=== PATIENT | female | born 1995 | race Caucasian/White ===

== ENCOUNTER 2019-06-21 17:40 | Emergency (ER) | payer BC, MEDICAID ==
[2019-06-21] MEDS ORDERED: CEFTRIAXONE INJ 250 MG VIAL IM ONE (18:18)
[2019-06-21] MEDS ORDERED: LIDOCAINE 1% INJ (10 MG/ML) 10 ML MDV INJ ONE (18:19)
[2019-06-21] MEDS ORDERED: DOXYCYCLINE HYCLATE 100 MG TABLET PO ONE (18:19)
--- NOTE | 2019-06-21 18:24 | ER Document Report ---
HPI - HPI Patient complains to provider of: mouth sores Time Seen by Provider: 06/21/19 18:05 Onset: Other - 2wks Onset/Duration: Better Quality of pain: Achy Pain Level: 4 Context: Patient complains of mouth sores that she has had over the past 2 weeks. Patient states that the lesions were worse and started to resolve but she has some tingling to the lower lip and feels like she may get additional skin lesions. Patient does report a history of oral herpes. Patient also states that she had been exposed to chlamydia and would like to be treated for this tonight. Associated Symptoms: denies: Nonproductive cough, Fever, Headache, Sore throat Exacerbated by: Denies Relieved by: Denies Similar symptoms previously: Yes Recently seen / treated by doctor: No - ROS ROS below otherwise negative: Yes Systems Reviewed and Negative: Yes All other systems reviewed and negative - CONSTITUTIONAL Constitutional: DENIES: Fever, Chills - EENT EENT: DENIES: Sore Throat, Ear Pain - NEURO Neurology: DENIES: Headache - RESPIRATORY Respiratory: DENIES: Coughing - GASTROINTESTINAL Gastrointestinal: DENIES: Nausea - URINARY Urinary: DENIES: Dysuria, Urgency, Frequency - REPRODUCTIVE Reproductive: DENIES: :, Abnormal bleeding / discharge - DERM Skin Color: Normal Skin Problems: Rash, Blister Past Medical History - General Information source: Patient - Social History Smoking Status: Current Every Day Smoker Smoking Education Provided: Yes Frequency of alcohol use: None Drug Abuse: None Occupation: cleaning Family History: Reviewed & Not Pertinent Patient has suicidal ideation: No Patient has homicidal ideation: No - Medical History Medical History: Negative Renal/ Medical History: Denies: Hx Peritoneal Dialysis Surgical Hx: Negative Vertical Provider Document - CONSTITUTIONAL Agree With Documented VS: Yes Exam Limitations: No Limitations General Appearance: WD/WN, No Apparent Distress - INFECTION CONTROL TRAVEL OUTSIDE OF THE [place] IN LAST 30 DAYS: No - HEENT HEENT: Atraumatic, Normal ENT Exam, Normocephalic. negative: Pharyngeal Exudate, Pharyngeal Tenderness, Pharyngeal Erythema, Tympanic Membrane Red, Tympanic Membrane Bulging Notes: Patient with few scattered discrete papular lesions along the vermilion border of right lower lip - NECK Neck: Normal Inspection, Supple. negative: Lymphadenopathy-Left, Lymphadenopathy-Right - RESPIRATORY Respiratory: Breath Sounds Normal, No Respiratory Distress - CARDIOVASCULAR Cardiovascular: Regular Rate, Regular Rhythm - BACK Back: Normal Inspection - MUSCULOSKELETAL/EXTREMETIES Musculoskeletal/Extremeties: MARYCARMEN, FROM - NEURO Level of Consciousness: Awake, Alert, Appropriate Motor/Sensory: No Motor Deficit - DERM Integumentary: Warm, Dry Course - Re-evaluation Re-evalutation: 06/21/19 18:21 pt reports history of oral herpetic lesions in the past and suspects the same today. Patient also reports having exposure to chlamydia and would like prophylactic treatment. Patient denies any concerns about - Vital Signs Vital signs: Temp Pulse Resp BP Pulse Ox 97.6 F 117 H 18 124/72 96 06/21/19 17:47 06/21/19 17:47 06/21/19 17:47 06/21/19 17:47 06/21/19 17:47 Discharge - Discharge Clinical Impression: Oral herpes simplex infection, Concern about STD in female without diagnosis Condition: Stable Disposition: HOME, SELF-CARE Instructions: Chlamydia ([facility]), Doxycycline ([facility]), Herpes Simplex ([facility]), Rocephin ([facility]) Additional Instructions: Return immediately for any new or worsening symptoms Followup with your primary care provider, call tomorrow to make a followup appointment Safe sex practices Prescriptions: Doxycycline Hyclate 100 mg PO BID #14 capsule Valacyclovir HCl [Valacyclovir] 1,000 mg PO TID #21 tablet Forms: Smoking Cessation Education, Return to Work Referrals: [facility] [Provider Group] - Follow up as needed [facility] [Provider Group] - Follow up as needed
[2019-06-21 19:00] VITALS: BP 109/66
== END 2019-06-21 19:01 | disposition home or self-care (01) ==
LOC: ER 17:40
DX: B00.1 Herpesviral vesicular dermatitis (principal); K13.79 Other lesions of oral mucosa; R20.0 Anesthesia of skin; Z20.2 Contact with and (suspected) exposure to infections with a predominantly sexual mode of transmission; F17.200 Nicotine dependence, unspecified, uncomplicated
CPT/HCPCS: J0696

== ENCOUNTER 2020-03-03 07:03 | Emergency (ER) | payer BC ==
[2020-03-03 07:16] VITALS: BP 135/82
[2020-03-03] MEDS ORDERED: LIDOCAINE 2% VISCOUS SOLN 15 ML UDCUP PO ONE (07:41)
--- NOTE | 2020-03-03 07:45 | ER Document Report ---
HPI - HPI Time Seen by Provider: 03/03/20 07:32 Pain Level: 2 Notes: 24-year-old female patient presenting to the emergency department chief complaint of dental pain. Patient reports pain started 2 days ago. She states she has not seen a dentist in quite some time. She reports that she has multiple cavities. - REPRODUCTIVE Reproductive: DENIES: : Past Medical History - General Information source: Patient - Social History Smoking Status: Current Every Day Smoker Chew tobacco use (# tins/day): No Frequency of alcohol use: None Drug Abuse: None Family History: Reviewed & Not Pertinent Patient has homicidal ideation: No - Medical History Medical History: Negative Renal/ Medical History: Denies: Hx Peritoneal Dialysis Surgical Hx: Negative - Immunizations Immunizations up to date: Yes Vertical Provider Document - CONSTITUTIONAL Notes: PHYSICAL EXAMINATION: GENERAL: Well-appearing, well-nourished and in no acute distress. HEAD: Atraumatic, normocephalic. EYES: Pupils equal round extraocular movements intact, conjunctiva are normal. ENT: Nares patent, no obvious abscess, no fractured teeth. Slight erythema surrounding tooth #31. No gonsalo abscess no trismus. NECK: Normal range of motion LUNGS: No respiratory distress Musculoskeletal: Normal range of motion NEUROLOGICAL: Normal speech, normal gait. PSYCH: Normal mood, normal affect. SKIN: Warm, Dry, normal turgor, no rashes or lesions noted. - INFECTION CONTROL TRAVEL OUTSIDE OF THE [place] IN LAST 30 DAYS: No Course - Re-evaluation Re-evalutation: 03/03/20 07:42 Presentation is most consistent with likely an infected tooth. Airway is patent. Vitals within normal limits. Patient is able swallow without any difficulty. There is no significant facial swelling. No evidence of Carlos Alberto angina, apical abscess, or airway obstruction. Patient will be started on antibiotics. I've instructed to follow-up with dentistry as earliest ability for definitive management. At this time will discharge with return precautions and follow-up recommendations. Verbal discharge instructions given a the bedside and opportunity for questions given. Medication warnings reviewed. Patient is in agreement with this plan and has verbalized understanding of return precautions and the need for primary care follow-up in the next 24-72 hours. - Vital Signs Vital signs: Temp Pulse Resp BP Pulse Ox 98.4 F 127 H 16 135/82 H 97 03/03/20 07:16 03/03/20 07:12 03/03/20 07:12 03/03/20 07:12 03/03/20 07:12 Discharge - Discharge Clinical Impression: Infected tooth Condition: Stable Disposition: HOME, SELF-CARE Additional Instructions: You have been seen for dental pain. It is very important that you follow-up with a dentist for definitive care. Please return if you develop fever greater than 101, swelling in your face, vomiting, difficulty breathing or swallowing, or any other symptoms that are concerning to you. For pain you should take ibuprofen 800 mg every 8 hours as needed. Use the lidocaine jelly directly to the area as often as you would like. Take the antibiotics as prescribed. Follow-up with a dentist. [facility] [phone] Prescriptions: Fluconazole [Diflucan] 150 mg PO ONCE PRN #1 tablet PRN Reason: Penicillin V Potassium [Penicillin Vk 500 mg Tablet] 500 mg PO BID #20 tablet
== END 2020-03-03 07:58 | disposition home or self-care (01) ==
LOC: ER 07:03
DX: K04.7 Periapical abscess without sinus (principal); K08.89 Other specified disorders of teeth and supporting structures; K02.9 Dental caries, unspecified; F17.200 Nicotine dependence, unspecified, uncomplicated
CPT/HCPCS: 99282; J3490